=== PATIENT | female | born 1945 | race Asian ===

== ENCOUNTER 2018-06-18 10:20 | Day surgery (SDC) | payer OTHER ==
[~2018-06-18] VITALS: Ht 152.4 cm; Wt 61.1 kg
[2018-06-18 11:18] VITALS: Ht 152.4 cm; Wt 61.1 kg
[2018-06-18] MEDS ORDERED: METFORMIN PO (11:47)
--- NOTE | 2018-06-18 11:55 | PREAC ---
Date/Time of Note Date/Time of Note DATE: 06/18/18 TIME: 11:54 Anesthesia Eval and Record Evaluation Time Pre-Procedure Interview DATE: 06/18/18 TIME: 11:54 Age 73 Sex female NPO: 8 hrs Preoperative diagnosis Screening Planned procedure Colonoscopy Past Medical History Past Medical History: Includes Cardio: Dyslipidemia Endo: Diabetes Surgery & Anesthesia Issues No known issue Meds Anticoagulation: No Beta Ross within 24 hr: No Reason Beta Ross not given: Pt. not on B-Ross Reported Medications [Metformin] No Conflict Check, PO 06/18/18 Meds reviewed: Yes Allergies Coded Allergies: No Known Allergy (Unverified , 06/18/18) Allergies Reviewed: Yes Labs/Studies Labs Reviewed: Reviewed by anesthesiologist test: N/A Studies: ECG (n/a), CXR (n/a) Pre-procedure Exam Airway: Adequate mouth opening, Adequate thyromental dist Mallampati: Mallampati II Teeth: Normal Lung: Normal Heart: Normal ASA Physical Status ASA physical status: 2 Emergency: None Planned Anesthetic General/MAC: MAC Planned Pain Management Parenteral pain med Pre-operative Attestations Prior to commencing anesthesia and surgery, the patient was re-evaluated, there was verification of: *The patient's identity *The results of appropriate recent lab work and preoperative vital signs *The above evaluation not changing prior to induction *Anesthetic plan, risk benefits, alternative and complications discussed with patient/family; questions answered; patient/family understands, accepts and wishes to proceed. BALJEET LUU MD Jun 18, 2018 11:55
[2018-06-18 11:59] VITALS: BP 129/61; PULSE 68; RESP 16
--- NOTE | 2018-06-18 13:00 | PAC ---
Date/Time of Note Date/Time of Note DATE: 06/18/18 TIME: 13:00 Post-Anesthesia Notes Post-Anesthesia Note Last documented vital signs T:98.0 Activity: WNL Respiratory function: WNL Cardiovascular function: WNL Mental status: Baseline Pain reasonably controlled: Yes Hydration appropriate: Yes Nausea/Vomiting absent: Yes BALJEET LUU MD Jun 18, 2018 13:00
[2018-06-18] MEDS ORDERED: PROPOFOL 20 ML ONE (13:15)
== END 2018-06-18 16:09 | disposition home or self-care (01) ==
LOC: GIL 10:20
PROVIDERS: ATTEND Internal Medicine Gastroenterology
DX: Z12.11 Encounter for screening for malignant neoplasm of colon (principal); K64.8 Other hemorrhoids; E78.5 Hyperlipidemia, unspecified; E11.9 Type 2 diabetes mellitus without complications
CPT/HCPCS: 82962